=== PATIENT | female | born 2000 | race Caucasian/White ===

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

== ENCOUNTER → 2021-04-26 17:42 | Outpatient (CLI) | payer OTHER, SELFPAY ==
--- NOTE | 2021-04-26 17:48 | CT_ITS ---
INDICATION: PAIN EXAMINATION: CT Foot W/O Contrast Injection TECHNIQUE: Helically acquired images were obtained of the right foot. 2-D reformats were performed by the technologist. A radiation dose optimization technique was used for this scan. IV Contrast dosage and agent: None. COMPARISON: None. FINDINGS: BONES AND ALIGNMENT: No acute fractures. The alignment is anatomic. Postsurgical changes of the calcaneus, navicular, and medial cuneiform with intraosseous screw tract. JOINTS: No degenerative changes are seen. SOFT TISSUES: No significant soft tissue swelling. CT/Extremity Lower without Contra IMPRESSION: No acute abnormalities. Postsurgical changes of the calcaneus, navicular, and medial cuneiform with intraosseous screw tract. Electronically Signed: Jos Woodard MD at 18:58 EDT Tel , Service support ,
== END ==
PROVIDERS: PCP Pediatrics; Referring Provider Podiatrist Foot & Ankle Surgery; Visit Provider Podiatrist Foot & Ankle Surgery
DX: M96.89 Other intraoperative and postprocedural complications and disorders of the musculoskeletal system (principal); M76.821 Posterior tibial tendinitis, right leg
CPT/HCPCS: 73700

== ENCOUNTER → 2021-06-07 12:26 | Outpatient (CLI) | payer OTHER, SELFPAY ==
--- NOTE | 2021-06-07 12:34 | MRI_ITS ---
STUDY: MRI RIGHT MIDFOOT REASON FOR EXAM: Female, 20 years old.2 prior surgeries rt foot 05/2019 and 08/2020, still has pain arch and outside MT''s PTTD,GANGLION,EXOSTOSIS TECHNIQUE: Standardized fat and water weighted pulse sequences were obtained in all 3 orthogonal planes. COMPARISON: CT of the right foot dated APRIL 26, 2021 FINDINGS: Reidentification of posterior tibial tendon transfer surgery with tract stein seen in the navicular bone and middle cuneiforms. Minor postoperative fibrosis is present around the distal aspect of the tendon. No visualized tendon tear or retraction. Mild to moderate reactive edema is present in the navicular bone and first and second cuneiforms. No visualized ganglion cyst or fibromas. Normal talonavicular articulation. Normal calcaneocuboid articulation. Normal navicular-cuneiform articulations. Normal intercuneiform articulations. Normal first tarsometatarsal articulation. Normal Lisfranc ligament. Normal second and third tarsometatarsal articulations. Normal cuboid fourth and cuboid fifth tarsometatarsal articulation. Normal first through fifth metatarsi. Normal extensor hallucis longus tendon. Normal extensor digitorum longus tendons. Normal peroneus longus tendon and distal insertion. Normal peroneus brevis tendon and distal insertion. Normal intrinsic muscles of the mid and forefoot region. Normal extensor digitorum brevis muscle. Normal subcutis adipose space. MRI/Lower Ext/No Jt/w/o IMPRESSION: 1. Reidentification of posterior tibial tendon transfer surgery with tract stein seen in the navicular bone and middle cuneiforms. 2. Minor postoperative fibrosis is present around the distal aspect of the tendon. No visualized tendon tear or retraction. 3. Mild to moderate reactive edema is present in the navicular bone and first and second cuneiforms. No visualized ganglion cyst or fibromas. Electronically Signed: Jb Dang MD at 22:01 EDT , Service support ,
== END ==
PROVIDERS: PCP Pediatrics; Referring Provider Podiatrist Foot & Ankle Surgery; Visit Provider Podiatrist Foot & Ankle Surgery
DX: M76.821 Posterior tibial tendinitis, right leg (principal); M67.471 Ganglion, right ankle and foot; M25.775 Osteophyte, left foot
CPT/HCPCS: 73718

== ENCOUNTER → 2022-09-21 | Outpatient (CLI) | payer OTHER, SELFPAY ==
[2022-09-21 12:53] LABS: Hepatitis B Surface Antibody Non-Reactive; Rubella IgG Reactive (Nonreactive)
[2022-09-25 15:07] LABS: QNTFERON TB Mitogen Value > 10.00 IU/mL (.); QNTFERON TB Nil Value 0.04 IU/mL (.); QNTFERON TB1+ Ag Value 0.02 IU/mL (.); QNTFERON TB2+ Ag Value 0.04 IU/mL (.)
[2022-09-27 15:43] LABS: Rubeola IgG Ab 95.5 AU/mL (Immune >16.4); V-Zoster IgG (Immunity) 422 index (Immune >165)
[2022-09-27 15:44] LABS: Mumps Antibody,IgG 10.8 AU/mL (Immune >10.9); QNTIFERON TB Positive Criteria Negative (Negative)
== END | disposition home or self-care (01) ==
PROVIDERS: PCP Pediatrics; Referring Provider Family Medicine; Visit Provider Family Medicine
DX: Z01.84 Encounter for antibody response examination (principal)
CPT/HCPCS: 36415; 86480; 86706; 86735; 86762; 86765; 86787